=== PATIENT | male | born 1980 | race Caucasian/White ===

== ENCOUNTER 2017-09-13 16:54 | Emergency (ER) | payer OTHER ==
--- NOTE | 2017-09-13 17:19 | EDM.PDOC ---
ED HPI GENERAL MEDICAL PROBLEM - General Chief Complaint: Upper Extremity Injury/Pain Stated Complaint: LACERATION ON UNDERSIDE OF ARM, [id number] Time Seen by Provider: 09/13/17 17:19 - History of Present Illness INITIAL COMMENTS - FREE TEXT/NARRATIVE: Pt presents to ER with c/o a cut to the left forearm. He states he is concerned that he may have broken his arm as well. He states he was carrying his [employer]ati tree upstairs and tripped over a shoe and fell. He states the arm became swollen quickly. He denies hitting his head or losing consciousness, and denies any pain elsewhere. Onset: Today, Sudden Location: Reports: Upper Extremity, Left Quality: Reports: Dull Severity: Mild Improves with: Reports: None Worsens with: Reports: None Associated Symptoms: Reports: No Other Symptoms Left Arm Pain Score (Numeric/FACES): 8 - Related Data Allergies Allergy/AdvReac Type Severity Reaction Status Date / Time Penicillins Allergy Cannot Verified 09/13/17 17:06 Remember Home Meds: Home Meds Aspirin [Halfprin] 81 mg PO DAILY 09/13/17 [History] Lisinopril 20 mg PO DAILY 09/13/17 [History] Saxagliptin HCl [Onglyza] 5 mg PO DAILY 09/13/17 [History] atorvaSTATin [Lipitor] 20 mg PO DAILY 09/13/17 [History] metFORMIN [Glucophage XR] 1,000 mg PO BID 09/13/17 [History] Past Medical History HEENT History: Reports: Impaired Vision Other HEENT History: glasses Cardiovascular History: Reports: Hypertension Respiratory History: Reports: None Gastrointestinal History: Reports: None Genitourinary History: Reports: None Musculoskeletal History: Reports: None Neurological History: Reports: None Psychiatric History: Reports: None Endocrine/Metabolic History: Reports: Diabetes, Type II Hematologic History: Reports: None Immunologic History: Reports: None Oncologic (Cancer) History: Reports: None Dermatologic History: Reports: None - Infectious Disease History Infectious Disease History: Reports: Chicken Pox - Past Surgical History Head Surgeries/Procedures: Reports: None Social & Family History - Tobacco Use Smoking Status *Q: Never Smoker Second Hand Smoke Exposure: No - Caffeine Use Caffeine Use: Reports: Soda - Recreational Drug Use Recreational Drug Use: No Review of Systems - Review of Systems Review Of Systems: ROS reveals no pertinent complaints other than HPI. ED EXAM, GENERAL - Physical Exam Exam: See Below Exam Limited By: No Limitations General Appearance: Alert, WD/WN, No Apparent Distress Eye Exam: Bilateral Eye: Normal Inspection Ears: Normal External Exam Nose: Normal Inspection Throat/Mouth: Normal Inspection, Normal Voice, No Airway Compromise Head: Atraumatic, Normocephalic Neck: Normal Inspection Respiratory/Chest: No Respiratory Distress, Lungs Clear, Normal Breath Sounds, No Accessory Muscle Use, Chest Non-Tender Cardiovascular: Normal Peripheral Pulses, Regular Rate, Rhythm, No Edema, No Gallop, No JVD, No Murmur, No Rub Peripheral Pulses: 2+: Radial (L), Radial (R) GI/Abdominal: Normal Bowel Sounds, Soft, Non-Tender (Male) Exam: Deferred Rectal (Males) Exam: Deferred Back Exam: Normal Inspection, Full Range of Motion Extremities: Arm Pain (mild, mild swelling on proximal left forearm, abrasion at that site. ) Neurological: Alert, Oriented, CN II-XII Intact, Normal Cognition, Normal Gait, No Motor/Sensory Deficits Psychiatric: Normal Affect, Normal Mood Skin Exam: Warm, Dry, Normal Color, No Rash Lymphatic: No Adenopathy Course - Vital Signs Last Recorded V/S: Last Vital Signs Temp 98.2 F 09/13/17 17:07 Pulse 97 09/13/17 17:07 Resp 20 09/13/17 17:07 BP 132/94 H 09/13/17 17:07 Pulse Ox 95 09/13/17 17:07 - Radiology Interpretation Free Text/Narrative:: Left forearm xray: No acute findings See rad report Departure - Departure Time of Disposition: 18:06 Disposition: Home, Self-Care 01 Condition: Good Clinical Impression: Abrasion - Discharge Information Instructions: Abrasion, [id number] Referrals: Naren Rizo [Primary Care Provider] - Forms: ED Department Discharge Additional Instructions: May ice the area Follow up at your primary care facility if needed. Tylenol or ibuprofen as directed for pain
== END 2017-09-13 18:22 | disposition home or self-care (01) ==
LOC: DL.ED 16:54
DX: S50.812A Abrasion of left forearm, initial encounter (principal); I10 Essential (primary) hypertension; E11.9 Type 2 diabetes mellitus without complications; Z79.82 Long term (current) use of aspirin; Z79.899 Other long term (current) drug therapy; Z88.0 Allergy status to penicillin; Z79.84 Long term (current) use of oral hypoglycemic drugs; W18.09XA Striking against other object with subsequent fall, initial encounter
CPT/HCPCS: 73090-LT; 99284

== ENCOUNTER 2022-05-08 16:16 | Emergency (ER) | payer OTHER ==
[2022-05-08] MEDS ORDERED: Sodium Chloride 0.9% 10 ML Syringe FLUSH PRN (16:28)
[2022-05-08 17:16] LABS: ANION GAP 7.6 mEq/L (7-13)
[2022-05-08] MEDS ORDERED: Iopamidol 755 Mg/ML 100 ML Bottle IVPUSH ONE (17:45)
[2022-05-08 17:48] LABS: O2 DELIVERY DEVICE NASAL CANNULA
[2022-05-08 17:49] LABS: O2 SATURATION ARTERIAL 98 % (95-100); PCO2 ARTERIAL 51 mmHg (35-45); PO2 ARTERIAL 113 mmHg (70-100)
[2022-05-08 17:50] LABS: ALLEN TEST PERFORMED; BASE EXCESS ARTERIAL 3 mmol/L ((-2)-(+3))
[2022-05-08] MEDS ORDERED: Aspirin 81 MG Tab.Chew PO ONE (18:21)
[2022-05-08] MEDS ORDERED: Heparin Sodium 5,000 Units/ML Vial IVPUSH ONE (18:57)
[2022-05-08] MEDS ORDERED: cefTRIAXone 2 GM in Sodium Chloride 0.9% 100 ML IV ONE (18:59)
[2022-05-08] MEDS ORDERED: Azithromycin 500 MG in Sodium Chloride 0.9% 250 ML IV ONE (19:00)
[2022-05-08] MEDS ORDERED: Heparin Sodium/0.45% NaCl 25,000 UNITS/500 ML BAG IV SCH (19:00)
== END 2022-05-08 20:37 | disposition home or self-care (01) ==
LOC: DL.ED 16:16
DX: I21.4 Non-ST elevation (NSTEMI) myocardial infarction (principal); J15.9 Unspecified bacterial pneumonia; R09.02 Hypoxemia; I10 Essential (primary) hypertension; Z88.0 Allergy status to penicillin; Z79.82 Long term (current) use of aspirin; Z79.899 Other long term (current) drug therapy; Z86.16 Personal history of COVID-19; Z79.84 Long term (current) use of oral hypoglycemic drugs; Z20.822 Contact with and (suspected) exposure to COVID-19
CPT/HCPCS: 36415; 36600; 71260; 80053; 82803; 82947; 83605; 83735; 83880; 84443; 84484; 85025; 85379; 85610; 86140; 87040; 87635; 93005; 96365; 96375; 99285; A9270; J0456; J0696; J1644; J3490; J7050; Q9967; U0002

== ENCOUNTER 2022-05-23 16:56 | Emergency (ER) | payer OTHER ==
[2022-05-23] MEDS ORDERED: GI Cocktail Oral Solution 30 ML PO ONE (17:56)
[2022-05-23] MEDS ORDERED: Sodium Chloride 0.9% 10 ML Syringe FLUSH PRN (18:30)
== END 2022-05-23 20:31 | disposition home or self-care (01) ==
LOC: DL.ED 16:56
DX: F41.9 Anxiety disorder, unspecified (principal); R06.02 Shortness of breath; E66.9 Obesity, unspecified; Z88.0 Allergy status to penicillin; Z99.81 Dependence on supplemental oxygen; Z68.42 Body mass index [BMI] 45.0-49.9, adult
CPT/HCPCS: 36415; 71045; 80053; 82150; 83690; 84484; 85025; 85379; 93005; 99284; A9270

== ENCOUNTER 2022-09-26 17:00 | Emergency (ER) | payer OTHER ==
[2022-09-26] MEDS: Sodium Chloride 0.9% 10 ML Syringe FLUSH PRN (19:02)
[2022-09-26 19:34] LABS: ANION GAP 11.9 mEq/L (7-13); CHLORIDE,CL 103 mmol/L (98-107); SODIUM,NA 141 mmol/L (136-145)
[2022-09-26 19:35] LABS: ESTIMATED GFR 96 mL/min (>=60)
== END 2022-09-26 20:48 | disposition home or self-care (01) ==
LOC: DL.ED 17:00
DX: R00.2 Palpitations (principal); E03.8 Other specified hypothyroidism; E11.9 Type 2 diabetes mellitus without complications; I10 Essential (primary) hypertension; E78.5 Hyperlipidemia, unspecified; E78.00 Pure hypercholesterolemia, unspecified; Z86.16 Personal history of COVID-19; Z88.0 Allergy status to penicillin; Z79.82 Long term (current) use of aspirin; Z79.899 Other long term (current) drug therapy; Z79.84 Long term (current) use of oral hypoglycemic drugs
CPT/HCPCS: 36415; 71045; 80053; 81003; 83735; 83880; 84443; 84484; 85025; 93005; 99285; J3490

== ENCOUNTER 2023-05-08 15:16 | Emergency (ER) | payer OTHER | END 2023-05-08 17:32 | disposition home or self-care (01) | LOC: DL.ED 15:16 | DX: S90.121A Contusion of right lesser toe(s) without damage to nail, initial encounter (principal); E78.00 Pure hypercholesterolemia, unspecified; I10 Essential (primary) hypertension; E11.9 Type 2 diabetes mellitus without complications; E66.9 Obesity, unspecified; Z68.43 Body mass index [BMI] 50.0-59.9, adult; Z86.16 Personal history of COVID-19; Z88.0 Allergy status to penicillin; Z79.82 Long term (current) use of aspirin; Z79.84 Long term (current) use of oral hypoglycemic drugs; Z79.899 Other long term (current) drug therapy; W20.8XXA Other cause of strike by thrown, projected or falling object, initial encounter | CPT/HCPCS: 73660-T6; 99283 ==

== ENCOUNTER 2023-05-27 18:47 | Emergency (ER) | payer OTHER ==
[2023-05-27 20:14] LABS: BASOPHILS PERCENT AUTO 0.4 % (0.0-1.0); EOSINOPHILS PERCENT AUTO 2.7 % (1.0-3.0); HEMATOCRIT 47.8 % (40.0-54.0); HEMOGLOBIN 15.1 g/dL (14.0-18.0); LYMPHOCYTES PERCENT AUTO 23.9 % (20.5-50.1); MEAN CORPUSCULAR HEMOGLOBIN 29.6 pg (27.0-34.0); MEAN CORPUSCULAR HGB CONC 31.6 g/dL (33.0-35.0); MEAN CORPUSCULAR VOLUME 93.7 fL (80-100); MONOCYTES PERCENT AUTO 7.9 % (2-8); NEUTROPHILS PERCENT AUTO 65.1 % (42.2-75.2); PLATELET COUNT,PLT 166 10^3/uL (150-450); WHITE BLOOD CELL COUNT,WBC 9.3 10^3/uL (5.0-10.0)
[2023-05-27 20:43] LABS: ALBUMIN 3.5 g/dL (3.4-5.0); ANION GAP 10.6 mEq/L (7-13); BILIRUBIN TOTAL 0.4 mg/dL (0.2-1.0); BUN/CREATININE RATIO 9.1 (No establ ref range); CALCIUM 8.8 mg/dL (8.5-10.1); CREATININE 0.99 mg/dL (0.70-1.30); EST CRCL DRUG DOSING (CG) 98.32 mL/min; POTASSIUM,K 3.6 mmol/L (3.5-5.1); PROTEIN TOTAL,TP 7.1 g/dL (6.4-8.2)
== END 2023-05-27 21:50 | disposition home or self-care (01) ==
LOC: DL.ED 18:47
DX: R06.02 Shortness of breath (principal); E11.9 Type 2 diabetes mellitus without complications; E78.00 Pure hypercholesterolemia, unspecified; I10 Essential (primary) hypertension; E66.9 Obesity, unspecified; Z68.43 Body mass index [BMI] 50.0-59.9, adult; Z86.16 Personal history of COVID-19; Z79.82 Long term (current) use of aspirin; Z79.84 Long term (current) use of oral hypoglycemic drugs; Z79.899 Other long term (current) drug therapy; Z88.0 Allergy status to penicillin
CPT/HCPCS: 36415; 71046; 80053; 83880; 84484; 85025; 85379; 93005; 99285

== ENCOUNTER 2023-08-02 18:29 | Inpatient (IN) | payer OTHER ==
[2023-08-02 19:56] LABS: BASOPHILS PERCENT AUTO 0.5 % (0.0-1.0); HEMATOCRIT 47.1 % (40.0-54.0); HEMOGLOBIN 14.6 g/dL (14.0-18.0); LYMPHOCYTES PERCENT AUTO 21.1 % (20.5-50.1); MEAN CORPUSCULAR HEMOGLOBIN 29.8 pg (27.0-34.0); MEAN CORPUSCULAR VOLUME 96.1 fL (80-100); MONOCYTES PERCENT AUTO 10.7 % (2-8); NEUTROPHILS PERCENT AUTO 64.7 % (42.2-75.2); PLATELET COUNT,PLT 154 10^3/uL (150-450); WHITE BLOOD CELL COUNT,WBC 8.6 10^3/uL (5.0-10.0)
[2023-08-02] MEDS: Sodium Chloride 0.9% 10 ML Syringe FLUSH PRN (19:57)
[2023-08-02 20:16] LABS: A/G RATIO 0.9; ALBUMIN 3.4 g/dL (3.4-5.0); ANION GAP 8.3 mEq/L (7-13); BILIRUBIN TOTAL 0.6 mg/dL (0.2-1.0); BUN/CREATININE RATIO 10.3 (No establ ref range); CALCIUM 8.5 mg/dL (8.5-10.1); CREATININE 1.07 mg/dL (0.70-1.30); EST CRCL DRUG DOSING (CG) 90.97 mL/min; MAGNESIUM 2.1 mg/dL (1.8-2.4); POTASSIUM,K 4.3 mmol/L (3.5-5.1); PROTEIN TOTAL,TP 7.4 g/dL (6.4-8.2)
[2023-08-02] MEDS ORDERED: Furosemide 40 MG/4 ML VIAL IVPUSH ONE (20:32)
[2023-08-02] MEDS ORDERED: Magnesium Hydroxide 400 MG/5 ML Susp 30 ML Cup PO PRN ×2 (22:14→22:52)
[2023-08-02] MEDS ORDERED: Bisacodyl 5 MG Tab PO PRN ×2 (22:14→22:52)
[2023-08-02] MEDS ORDERED: Acetaminophen/HYDROcodone 325-10 MG Tab PO PRN ×2 (22:14→22:52)
[2023-08-02] MEDS ORDERED: Naloxone 2 MG/2 ML Syringe IVPUSH PRN ×2 (22:14→22:52)
[2023-08-02] MEDS ORDERED: Ondansetron 4 MG/2 ML SDV IVPUSH PRN ×2 (22:14→22:52)
[2023-08-02] MEDS ORDERED: Acetaminophen 325 MG Tab PO PRN ×2 (22:14→22:52)
[2023-08-02] MEDS ORDERED: Polyethylene Glycol 3350 Powder 17 GM Packet PO PRN ×2 (22:14→22:52)
[2023-08-02] MEDS ORDERED: Albuterol/Ipratropium 3.0-0.5 MG/3 ML Neb Soln NEB PRN ×2 (22:14→22:52)
[2023-08-02] MEDS ORDERED: HYDROmorphone 0.5 MG/0.5 ML Syringe IVPUSH PRN ×2 (22:14→22:52)
[2023-08-02 22:41] LABS: T4 FREE 1.21 ng/dL (0.76-1.46); TSH ULTRASENSITIVE 4.63 uIU/mL (0.36-3.74)
[2023-08-02] MEDS ORDERED: Metoprolol Tartrate 5 MG/5 ML SDV IVPUSH PRN (22:54)
[2023-08-02] MEDS ORDERED: hydrALAZINE 20 MG/ML SDV IVPUSH PRN (22:54)
[2023-08-02] MEDS ORDERED: Heparin Sodium 5,000 Units/ML Vial SUBCUT ONE (23:10)
[2023-08-03 06:35] LABS: BASOPHILS PERCENT AUTO 0.3 % (0.0-1.0); EOSINOPHILS PERCENT AUTO 2.7 % (1.0-3.0); HEMATOCRIT 46.2 % (40.0-54.0); HEMOGLOBIN 14.3 g/dL (14.0-18.0); LYMPHOCYTES PERCENT AUTO 21.6 % (20.5-50.1); MEAN CORPUSCULAR VOLUME 97.1 fL (80-100); MONOCYTES PERCENT AUTO 9.1 % (2-8); NEUTROPHILS PERCENT AUTO 66.3 % (42.2-75.2); PLATELET COUNT,PLT 195 10^3/uL (150-450); RED BLOOD CELL COUNT 4.76 10^6/uL (4.6-6.2)
[2023-08-03 06:59] LABS: ANION GAP 7.1 mEq/L (7-13); CALCIUM 8.5 mg/dL (8.5-10.1); CREATININE 0.98 mg/dL (0.70-1.30); EST CRCL DRUG DOSING (CG) 99.32 mL/min; MAGNESIUM 2.2 mg/dL (1.8-2.4); POTASSIUM,K 4.1 mmol/L (3.5-5.1)
[2023-08-03] MEDS: Heparin Sodium 5,000 Units/ML Vial SUBCUT SCH ×2 (08:03→12:59)
[2023-08-03] MEDS: Sodium Chloride 0.9% 10 ML Syringe FLUSH PRN (08:06)
[2023-08-03] MEDS ORDERED: Lisinopril 20 MG Tab PO SCH (09:00)
[2023-08-03] MEDS ORDERED: Furosemide 40 MG/4 ML VIAL IVPUSH SCH (09:00)
[2023-08-03] MEDS ORDERED: metFORMIN 500 MG Tab PO SCH (09:00)
[2023-08-03] MEDS ORDERED: Aspirin 81 MG Tab.EC PO SCH (09:00)
[2023-08-03] MEDS ORDERED: atorvaSTATin 20 MG Tab PO SCH (09:00)
== END 2023-08-03 18:01 | disposition home or self-care (01) | DRG 189 ==
LOC: DL.ED 18:29 → DL.MS 21:59 → OBSVTOIN 21:59 → DL.ED 22:15
PROVIDERS: ADMIT Internal Medicine; ATTEND Internal Medicine
DX: J96.01 Acute respiratory failure with hypoxia (principal); E66.2 Morbid (severe) obesity with alveolar hypoventilation; Z68.44 Body mass index [BMI] 60.0-69.9, adult; R18.8 Other ascites; E46 Unspecified protein-calorie malnutrition; J96.02 Acute respiratory failure with hypercapnia; E11.9 Type 2 diabetes mellitus without complications; I10 Essential (primary) hypertension; E78.00 Pure hypercholesterolemia, unspecified; F17.290 Nicotine dependence, other tobacco product, uncomplicated; I16.0 Hypertensive urgency; G47.33 Obstructive sleep apnea (adult) (pediatric); E03.8 Other specified hypothyroidism; Z88.0 Allergy status to penicillin; Z79.82 Long term (current) use of aspirin; Z79.84 Long term (current) use of oral hypoglycemic drugs; Z79.899 Other long term (current) drug therapy; Z87.01 Personal history of pneumonia (recurrent); Z86.16 Personal history of COVID-19
CPT/HCPCS: 36415; 71046; 80048; 80053; 82306; 82947; 83735; 83880; 84439; 84443; 84484; 85025; 85379; 94618; 96374; 99223; 99238; 99285; 99285-25; A9270-GY; J1644; J1940; J3490

== ENCOUNTER 2023-09-14 14:09 | Emergency (ER) | payer OTHER ==
[2023-09-14] MEDS ORDERED: Sodium Chloride 0.9% 10 ML Syringe FLUSH PRN (14:34)
[2023-09-14 14:49] LABS: BASOPHILS PERCENT AUTO 0.2 % (0.0-1.0); EOSINOPHILS PERCENT AUTO 2.3 % (1.0-3.0); HEMATOCRIT 45.7 % (40.0-54.0); HEMOGLOBIN 14.4 g/dL (14.0-18.0); LYMPHOCYTES PERCENT AUTO 20.8 % (20.5-50.1); MEAN CORPUSCULAR HGB CONC 31.5 g/dL (33.0-35.0); MEAN CORPUSCULAR VOLUME 95.2 fL (80-100); NEUTROPHILS PERCENT AUTO 66.7 % (42.2-75.2); PLATELET COUNT,PLT 186 10^3/uL (150-450); WHITE BLOOD CELL COUNT,WBC 9.1 10^3/uL (5.0-10.0)
[2023-09-14 15:12] LABS: A/G RATIO 0.83; ALBUMIN 3.3 g/dL (3.4-5.0); BILIRUBIN TOTAL 0.4 mg/dL (0.2-1.0); BUN/CREATININE RATIO 13.9 (No establ ref range); CALCIUM 8.6 mg/dL (8.5-10.1); CREATININE 1.01 mg/dL (0.70-1.30); EST CRCL DRUG DOSING (CG) 96.37 mL/min; PROTEIN TOTAL,TP 7.3 g/dL (6.4-8.2)
== END 2023-09-14 15:48 | disposition home or self-care (01) ==
LOC: DL.ED 14:09
DX: R60.9 Edema, unspecified (principal); E78.00 Pure hypercholesterolemia, unspecified; E11.9 Type 2 diabetes mellitus without complications; E66.9 Obesity, unspecified; Z68.30 Body mass index [BMI] 30.0-30.9, adult; Z86.16 Personal history of COVID-19; Z88.0 Allergy status to penicillin; Z79.84 Long term (current) use of oral hypoglycemic drugs; Z79.82 Long term (current) use of aspirin; Z79.899 Other long term (current) drug therapy
CPT/HCPCS: 36415; 71045; 80053; 83880; 84484; 85025; 93005; 99284; J3490